=== PATIENT | male | born 1930 | race Two or more races ===

== ENCOUNTER → 2016-07-10 | Outpatient (CLI) | payer MEDICARE, OTHER ==
[2016-07-10 12:40] LABS: Basophils # (auto) 0 uL; Basophils % (auto) 0.7 % (0.0-2.0); DEFINITIVE VIEW TRANSMISSION; Eosinophils # (auto) 0.2 uL; Eosinophils % (auto) 2.3 % (0.0-7.0); Hematocrit 48.6 % (41.0-53.0); Hemoglobin 14.7 g/dL (13.5-17.5); Lymphocytes # (auto) 1.5 uL; Lymphocytes % (auto) 20.4 % (10.0-50.0); Mean Corpuscular Hemoglobin 28.7 pg (28.0-32.0); Mean Corpuscular Hgb Conc. 30.2 g/dL (32.0-36.0); Mean Corpuscular Volume 94.9 fL (80.0-100.0); Mean Platelet Volume 8.4 fL (7.4-10.4); Monocytes # (auto) 0.4 uL; Monocytes % (auto) 6.1 % (0.0-12.0); Neutrophils # (auto) 5.1 uL; Neutrophils % (auto) 70.5 % (37.0-80.0); Platelet Count (auto) 317 10^3/uL (140-450); Red Cell Distribution Width 13.7 % (11.6-16.0); White Blood Cell 7.2 10^3/uL (4.4-10.8)
[2016-07-10 13:33] LABS: Albumin 3.6 g/dL (3.4-5.0); BUN/Creatinine Ratio 19.7; Bilirubin, Total 0.6 mg/dL (0.2-1.0); Calcium 9.3 mg/dL (8.5-10.1); Total Protein 6.9 g/dL (6.4-8.2)
== END | disposition home or self-care (01) ==
LOC: LAB 09:33
PROVIDERS: ATTEND Internal Medicine Cardiovascular Disease
DX: I10 Essential (primary) hypertension (principal); D64.9 Anemia, unspecified; E78.00 Pure hypercholesterolemia, unspecified; R97.20 Elevated prostate specific antigen [PSA]; E11.9 Type 2 diabetes mellitus without complications; Z94.1 Heart transplant status
CPT/HCPCS: 36415; 80053; 80061; 80197; 83036; 84153; 84154; 85025

== ENCOUNTER → 2016-11-05 | Outpatient (CLI) | payer MEDICARE, OTHER | END | disposition home or self-care (01) | LOC: LAB 10:16 | PROVIDERS: ATTEND Internal Medicine Cardiovascular Disease | DX: Z94.1 Heart transplant status (principal); R97.20 Elevated prostate specific antigen [PSA] | CPT/HCPCS: 80197; 84153; 84154 ==

== ENCOUNTER → 2017-04-08 | Outpatient (CLI) | payer MEDICARE, OTHER ==
[2017-04-08 13:05] LABS: Basophils # (auto) 0 uL; Basophils % (auto) 0.8 % (0.0-2.0); Eosinophils # (auto) 0.1 uL; Eosinophils % (auto) 1.6 % (0.0-7.0); Hematocrit 45.7 % (41.0-53.0); Hemoglobin 15.1 g/dL (13.5-17.5); Lymphocytes % (auto) 18.5 % (10.0-50.0); Mean Corpuscular Hemoglobin 30.7 pg (28.0-32.0); Mean Corpuscular Volume 93.1 fL (80.0-100.0); Monocytes # (auto) 0.6 uL; Monocytes % (auto) 9.8 % (0.0-12.0); Neutrophils # (auto) 3.9 uL; Neutrophils % (auto) 69.3 % (37.0-80.0); Nucleated Red Blood Cells % 0.1 %; Platelet Count (auto) 228 10^3/uL (140-450); Red Cell Distribution Width 13.7 % (11.8-14.3); White Blood Cell 5.7 10^3/uL (4.4-10.8)
[2017-04-08 13:17] LABS: INR 1.01 (0.9-1.15)
[2017-04-08 13:33] LABS: BUN/Creatinine Ratio 15.8; Calcium 9.2 mg/dL (8.5-10.1); Potassium 4.3 mmol/L (3.5-5.1)
== END | disposition home or self-care (01) ==
LOC: LAB 09:23
PROVIDERS: ATTEND Internal Medicine Cardiovascular Disease
DX: Z01.812 Encounter for preprocedural laboratory examination (principal); I10 Essential (primary) hypertension; R79.1 Abnormal coagulation profile; D64.9 Anemia, unspecified
CPT/HCPCS: 36415; 80048; 85025; 85610; 85730

== ENCOUNTER 2018-05-02 17:41 | Inpatient (IN) | payer MEDICARE, OTHER ==
[~2018-05-02] VITALS: Ht 165.1 cm; Wt 46.1 kg
[~2018-05-02 17:41] MED LIST: CALC0.253 PO; ESOM40CA39 PO; NATE60TA PO; TACR1CAP19 PO
[2018-05-02 18:40] LABS: Basophils # (auto) 0 uL; Basophils % (auto) 0.3 % (0.0-2.0); Eosinophils # (auto) 0.2 uL; Eosinophils % (auto) 2.5 % (0.0-7.0); Hematocrit 33.7 % (41.0-53.0); Hemoglobin 11.1 g/dL (13.5-17.5); Lymphocytes # (auto) 2.3 uL; Lymphocytes % (auto) 29.5 % (10.0-50.0); Mean Corpuscular Hemoglobin 29.4 pg (28.0-32.0); Mean Corpuscular Hgb Conc. 32.8 g/dL (32.0-36.0); Mean Corpuscular Volume 89.6 fL (80.0-100.0); Monocytes # (auto) 0.9 uL; Monocytes % (auto) 11.5 % (0.0-12.0); Neutrophils # (auto) 4.4 uL; Neutrophils % (auto) 56.2 % (37.0-80.0); Nucleated Red Blood Cells % 0.1 %; Platelet Count (auto) 320 10^3/uL (140-450); Red Blood Cells 3.76 10^6/uL (4.5-5.90); Red Cell Distribution Width 15.6 % (11.8-14.3); White Blood Cell 7.9 10^3/uL (4.4-10.8)
[2018-05-02 18:56] LABS: Albumin 2.5 g/dL (3.4-5.0); Anion Gap 8 (5-15); Blood Urea Nitrogen 33 mg/dL (7-18); Calcium 8.6 mg/dL (8.5-10.1); Carbon Dioxide 28 mmol/L (21-32); Chloride 105 mmol/L (98-107); Glucose 100 mg/dL (74-106); Magnesium 1.9 mg/dL (1.6-2.6); Potassium 4.3 mmol/L (3.5-5.1); Sodium 141 mmol/L (136-145)
[2018-05-02 18:58] LABS: BUN/Creatinine Ratio 26.8; GFR African American 72 mL/min; GFR Non-African American 59 mL/min
[2018-05-02 19:11] LABS: Alanine Aminotransferase 13 U/L (16-61); Alkaline Phosphatase 75 U/L (45-117); Aspartate Aminotransferase 9 U/L (15-37); Bilirubin, Total 0.3 mg/dL (0.2-1.0); Total Protein 6.6 g/dL (6.4-8.2)
[2018-05-02] MEDS ORDERED: LEVOFLOXACIN 750MG 150 ML IV ONE (19:30)
[2018-05-02 21:27] LABS: Urine Amorphous Crystal FEW /hpf (None Seen); Urine Bacteria MOD /hpf (None Seen); Urine Blood TRACE /uL (Negative); Urine Mucus FEW (None Seen); Urine Specific Gravity 1.018 (1.001-1.035); Urine WBC 1027 /hpf (0 - 3); Urine WBC Clumps PRESENT /hpf (None Seen)
[2018-05-02 22:28] VITALS: BP 111/71
[2018-05-02] MEDS ORDERED: ACETAMINOPHEN 500 MG TAB PO PRN (22:30)
[2018-05-02] MEDS ORDERED: ONDANSETRON HCL 4 MG/2 ML VIAL IV PRN (22:30)
[2018-05-02] MEDS ORDERED: metroNIDAZOLE 500MG/100ML 100 ML IV SCH (23:00)
[2018-05-03] MEDS: ALBUTEROL SULF 2.5 MG/0.5ML(0.5%) NEB SOLN NEB SCH ×4 (00:15→18:55)
[2018-05-03] MEDS: IPRATROPIUM BROM 0.5 MG/2.5ML INH SOL NEB SCH ×4 (00:15→18:55)
[2018-05-03 04:06] VITALS: BP 128/63
[2018-05-03 04:50] VITALS: BP 119/78
[2018-05-03 05:35] LABS: Basophils # (auto) 0 uL; Basophils % (auto) 0.5 % (0.0-2.0); Eosinophils # (auto) 0.2 uL; Eosinophils % (auto) 3.1 % (0.0-7.0); Hematocrit 33.2 % (41.0-53.0); Hemoglobin 10.9 g/dL (13.5-17.5); Lymphocytes # (auto) 1.6 uL; Lymphocytes % (auto) 23.9 % (10.0-50.0); Mean Corpuscular Hemoglobin 29.8 pg (28.0-32.0); Mean Corpuscular Volume 90.1 fL (80.0-100.0); Monocytes # (auto) 0.7 uL; Monocytes % (auto) 11.2 % (0.0-12.0); Neutrophils # (auto) 4.1 uL; Neutrophils % (auto) 61.3 % (37.0-80.0); Platelet Count (auto) 299 10^3/uL (140-450); Red Blood Cells 3.68 10^6/uL (4.5-5.90); Red Cell Distribution Width 15.1 % (11.8-14.3); White Blood Cell 6.6 10^3/uL (4.4-10.8)
[2018-05-03 06:12] LABS: Calcium 8.6 mg/dL (8.5-10.1)
[2018-05-03 06:14] LABS: BUN/Creatinine Ratio 27.3
[2018-05-03 08:52] VITALS: BP 115/75
[2018-05-03] MEDS ORDERED: MULT-228 PO (09:21)
[2018-05-03] MEDS ORDERED: MYCO250C PO (09:21)
[2018-05-03] MEDS ORDERED: MULT-195 OR (09:21)
[2018-05-03] MEDS ORDERED: NAPR-223 PO (09:21)
[2018-05-03] MEDS ORDERED: MAGN400C2 PO (09:21)
[2018-05-03] MEDS ORDERED: SACC1CAP3 PO (09:21)
[2018-05-03] MEDS ORDERED: ENOXAPARIN SOD 30 MG/0.3 ML SYRINGE SC SCH (10:00)
[2018-05-03] MEDS: cefTRIAXone 1GM/50ML D5W 50 ML IV SCH (10:57)
[2018-05-03 14:04] VITALS: BP 96/51
[2018-05-03] MEDS ORDERED: AZITHROMYCIN 250 MG TAB PO ONE (14:45)
[2018-05-03] MEDS ORDERED: TACROLIMUS 1 MG CAP PO ONE (15:00)
[2018-05-03 17:14] VITALS: BP 112/78
[2018-05-03 21:35] VITALS: BP 120/69
[2018-05-03] MEDS: MYCOPHENOLATE 500 MG TAB PO SCH (21:37)
[2018-05-03] MEDS: TACROLIMUS 1 MG CAP PO SCH (21:37)
[2018-05-03] MEDS ORDERED: MYCOPHENOLATE 500 MG TAB PO SCH (22:00)
[2018-05-04] MEDS: IPRATROPIUM BROM 0.5 MG/2.5ML INH SOL NEB SCH ×4 (01:00→19:16)
[2018-05-04] MEDS: ALBUTEROL SULF 2.5 MG/0.5ML(0.5%) NEB SOLN NEB SCH ×4 (01:00→19:16)
[2018-05-04 04:42] VITALS: BP 102/67
[2018-05-04 09:19] VITALS: BP 111/75
[2018-05-04] MEDS: cefTRIAXone 1GM/50ML D5W 50 ML IV SCH (09:19)
[2018-05-04] MEDS: MULTIPLE VITAMINS W/ MINERALS TAB PO SCH (09:54)
[2018-05-04] MEDS: AZITHROMYCIN 250 MG TAB PO SCH (09:54)
[2018-05-04] MEDS: MYCOPHENOLATE 500 MG TAB PO SCH ×2 (09:54→22:04)
[2018-05-04] MEDS: MAGNESIUM OXIDE 400 MG TAB PO SCH (09:54)
[2018-05-04] MEDS: PANTOPRAZOLE 40 MG TAB PO SCH (09:54)
[2018-05-04] MEDS: TACROLIMUS 1 MG CAP PO SCH ×2 (10:02→22:03)
[2018-05-04 12:00] VITALS: BP 103/72
[2018-05-04 16:56] VITALS: BP 124/79
[2018-05-04 22:00] VITALS: BP_SYST 122; BP_SYST 96; BP_DIAS 49; BP_DIAS 77
[2018-05-05] VITALS (7 sets, daily range): BP systolic 100–123; BP diastolic 55–75
[2018-05-05] MEDS: IPRATROPIUM BROM 0.5 MG/2.5ML INH SOL NEB SCH ×5 (00:36→23:51)
[2018-05-05] MEDS: ALBUTEROL SULF 2.5 MG/0.5ML(0.5%) NEB SOLN NEB SCH ×5 (00:36→23:51)
[2018-05-05 07:21] LABS: BUN/Creatinine Ratio 29.2; Calcium 8.8 mg/dL (8.5-10.1); Potassium 4.1 mmol/L (3.5-5.1)
[2018-05-05] MEDS: cefTRIAXone 1GM/50ML D5W 50 ML IV SCH (09:19)
[2018-05-05] MEDS: MAGNESIUM OXIDE 400 MG TAB PO SCH (11:21)
[2018-05-05] MEDS: TACROLIMUS 1 MG CAP PO SCH ×2 (11:21→22:16)
[2018-05-05] MEDS: AZITHROMYCIN 250 MG TAB PO SCH (11:21)
[2018-05-05] MEDS: PANTOPRAZOLE 40 MG TAB PO SCH (11:21)
[2018-05-05] MEDS: MULTIPLE VITAMINS W/ MINERALS TAB PO SCH (11:21)
[2018-05-05] MEDS: MYCOPHENOLATE 500 MG TAB PO SCH ×2 (11:21→22:16)
[2018-05-06 05:00] VITALS: BP 126/86
[2018-05-06] MEDS: IPRATROPIUM BROM 0.5 MG/2.5ML INH SOL NEB SCH ×3 (06:06→19:28)
[2018-05-06] MEDS: ALBUTEROL SULF 2.5 MG/0.5ML(0.5%) NEB SOLN NEB SCH ×3 (06:06→19:29)
[2018-05-06 08:00] VITALS: BP 120/77
[2018-05-06 09:00] VITALS: BP 120/77
[2018-05-06] MEDS: PANTOPRAZOLE 40 MG TAB PO SCH (09:45)
[2018-05-06] MEDS: MAGNESIUM OXIDE 400 MG TAB PO SCH (09:45)
[2018-05-06] MEDS: cefTRIAXone 1GM/50ML D5W 50 ML IV SCH (09:45)
[2018-05-06] MEDS: MULTIPLE VITAMINS W/ MINERALS TAB PO SCH (09:45)
[2018-05-06] MEDS: AZITHROMYCIN 250 MG TAB PO SCH (09:45)
[2018-05-06] MEDS: TACROLIMUS 1 MG CAP PO SCH ×2 (09:46→21:27)
[2018-05-06] MEDS: MYCOPHENOLATE 500 MG TAB PO SCH ×2 (09:46→21:26)
[2018-05-06 13:00] VITALS: BP 111/77
[2018-05-06 17:04] VITALS: BP 114/78
[2018-05-06] MEDS ORDERED: HYDROcodone-ACET 5/325MG TAB PO PRN (19:00)
[2018-05-06] MEDS ORDERED: VANCOMYCIN PER PHARMACY 0 MG IV SCH (19:00)
[2018-05-06] MEDS ORDERED: ACETAMINOPHEN 500 MG TAB PO PRN (19:00)
[2018-05-06] MEDS ORDERED: BISACODYL 10 MG RECT SUPP PR PRN (19:15)
[2018-05-06] MEDS ORDERED: LORazepam 0.5 MG TAB PO PRN (19:15)
[2018-05-06] MEDS ORDERED: hydrALAZINE HCL 10 MG TAB PO PRN (19:15)
[2018-05-06] MEDS ORDERED: oxyCODONE ER 10 MG TAB PO PRN (19:15)
[2018-05-06] MEDS ORDERED: ONDANSETRON HCL 4 MG/2 ML VIAL IV PRN (19:30)
[2018-05-06] MEDS: Ensure Enlive Chocolate 8oz Bottle PO SCH (20:46)
[2018-05-06] MEDS ORDERED: VANCOMYCIN 500 MG in D5W 5% 100 ML IV ONE (21:00)
[2018-05-06 22:00] VITALS: BP 109/71
[2018-05-06] MEDS ORDERED: METHOCARBAMOL 500 MG TAB PO SCH (22:00)
[2018-05-06] MEDS ORDERED: TAMSULOSIN HYDROCHLORIDE 0.4 MG CAP PO SCH (22:00)
[2018-05-06] MEDS ORDERED: GABAPENTIN 400 MG CAP PO SCH (22:00)
[2018-05-06] MEDS ORDERED: QUEtiapine FUMARATE 100 MG TAB PO SCH (22:00)
[2018-05-06] MEDS ORDERED: TOLTERODINE TARTRATE 1 MG TAB PO SCH (22:00)
[2018-05-06] MEDS ORDERED: HEPARIN SODIUM (PORCINE) 5000 UNITS/ML 1ML VIAL SC SCH (22:00)
[2018-05-06] MEDS ORDERED: CARBIDOPA W LEVODOPA 10/100mg TABLET PO SCH (22:00)
[2018-05-07] MEDS ORDERED: PIPERACILLIN-TAZOB 3.375GM 100 ML IV SCH
[2018-05-07 05:00] VITALS: BP 103/66
[2018-05-07] MEDS: ALBUTEROL SULF 2.5 MG/0.5ML(0.5%) NEB SOLN NEB SCH ×4 (06:01→19:00)
[2018-05-07] MEDS: IPRATROPIUM BROM 0.5 MG/2.5ML INH SOL NEB SCH ×4 (06:01→19:00)
[2018-05-07] MEDS ORDERED: PANTOPRAZOLE 40 MG/10 ML VIAL IV SCH (07:00)
[2018-05-07 09:00] VITALS: BP 97/66
[2018-05-07] MEDS: Ensure Enlive Chocolate 8oz Bottle PO SCH ×3 (09:21→17:56)
[2018-05-07] MEDS ORDERED: DULoxetine HCL 30 MG CAP PO SCH (10:00)
[2018-05-07] MEDS ORDERED: MULTIPLE VITAMIN TAB PO SCH (10:00)
[2018-05-07] MEDS ORDERED: AMIODARONE HCL 200 MG TAB PO SCH (10:00)
[2018-05-07] MEDS ORDERED: FINASTERIDE 5 MG TAB PO SCH (10:00)
[2018-05-07] MEDS ORDERED: CHOLECALCIFEROL (VITD3) 1,000 UNIT TAB PO SCH (10:00)
[2018-05-07] MEDS ORDERED: METOPROLOL SUCCINATE XL 50 MG TAB PO SCH (10:00)
[2018-05-07] MEDS ORDERED: MEMANTINE HCL 5 MG TAB PO SCH (10:00)
[2018-05-07] MEDS ORDERED: ASPirin 81 mg TAB PO SCH (10:00)
[2018-05-07] MEDS: MULTIPLE VITAMINS W/ MINERALS TAB PO SCH (10:43)
[2018-05-07] MEDS: MAGNESIUM OXIDE 400 MG TAB PO SCH (10:43)
[2018-05-07] MEDS: AZITHROMYCIN 250 MG TAB PO SCH (10:43)
[2018-05-07] MEDS: PANTOPRAZOLE 40 MG TAB PO SCH (10:43)
[2018-05-07] MEDS: TACROLIMUS 1 MG CAP PO SCH ×2 (10:44→22:00)
[2018-05-07] MEDS: MYCOPHENOLATE 500 MG TAB PO SCH ×2 (10:44→22:00)
[2018-05-07] MEDS ORDERED: cefTRIAXone 1GM/50ML D5W 50 ML IV SCH (11:15)
[2018-05-07] MEDS ORDERED: VANCOMYCIN PER PHARMACY 0 MG IV SCH (12:45)
[2018-05-07 13:00] VITALS: BP 108/78
[2018-05-07] MEDS ORDERED: VANCOMYCIN 500 MG in D5W 5% 100 ML IV ONE (13:30)
[2018-05-07 18:07] VITALS: BP 97/66
[2018-05-07 22:00] VITALS: BP 109/67
[2018-05-08] MEDS: ALBUTEROL SULF 2.5 MG/0.5ML(0.5%) NEB SOLN NEB SCH ×4 (00:38→18:52)
[2018-05-08] MEDS: IPRATROPIUM BROM 0.5 MG/2.5ML INH SOL NEB SCH ×4 (00:38→18:52)
[2018-05-08 05:00] VITALS: BP 100/68
[2018-05-08 07:30] LABS: Basophils # (auto) 0 uL; Basophils % (auto) 0.5 % (0.0-2.0); Eosinophils # (auto) 0.2 uL; Eosinophils % (auto) 2.5 % (0.0-7.0); Hematocrit 34.1 % (41.0-53.0); Hemoglobin 11.2 g/dL (13.5-17.5); Lymphocytes # (auto) 2.2 uL; Lymphocytes % (auto) 25.7 % (10.0-50.0); Mean Corpuscular Hemoglobin 29.3 pg (28.0-32.0); Mean Corpuscular Hgb Conc. 32.9 g/dL (32.0-36.0); Mean Corpuscular Volume 89.1 fL (80.0-100.0); Monocytes # (auto) 0.7 uL; Monocytes % (auto) 8.2 % (0.0-12.0); Neutrophils # (auto) 5.4 uL; Neutrophils % (auto) 63.1 % (37.0-80.0); Platelet Count (auto) 297 10^3/uL (140-450); Red Blood Cells 3.82 10^6/uL (4.5-5.90); Red Cell Distribution Width 15.4 % (11.8-14.3); White Blood Cell 8.6 10^3/uL (4.4-10.8)
[2018-05-08 07:42] LABS: Albumin 2.5 g/dL (3.4-5.0); Calcium 8.9 mg/dL (8.5-10.1); Potassium 4.6 mmol/L (3.5-5.1)
[2018-05-08 07:47] LABS: BUN/Creatinine Ratio 46.4; Bilirubin, Total 0.2 mg/dL (0.2-1.0)
[2018-05-08 08:45] VITALS: BP 101/70
[2018-05-08] MEDS: Ensure Enlive Chocolate 8oz Bottle PO SCH ×3 (08:47→18:18)
[2018-05-08] MEDS: cefTRIAXone 1GM/50ML D5W 50 ML IV SCH (10:18)
[2018-05-08] MEDS: PANTOPRAZOLE 40 MG TAB PO SCH (10:19)
[2018-05-08] MEDS: MULTIPLE VITAMINS W/ MINERALS TAB PO SCH (10:19)
[2018-05-08] MEDS: MAGNESIUM OXIDE 400 MG TAB PO SCH (10:19)
[2018-05-08] MEDS: MYCOPHENOLATE 500 MG TAB PO SCH ×2 (10:19→21:41)
[2018-05-08] MEDS: TACROLIMUS 1 MG CAP PO SCH ×2 (10:19→21:41)
[2018-05-08] MEDS: FLUCONAZOLE 100 MG TAB PO SCH (10:32)
[2018-05-08 12:30] VITALS: BP 109/67
[2018-05-08] MEDS: VANCOMYCIN 500 MG in D5W 5% 100 ML IV SCH (16:17)
[2018-05-08 16:25] VITALS: BP 101/62
[2018-05-08 19:54] VITALS: BP 101/62
[2018-05-08 21:59] VITALS: BP 114/69
[2018-05-09] MEDS: ALBUTEROL SULF 2.5 MG/0.5ML(0.5%) NEB SOLN NEB SCH ×3 (00:43→11:51)
[2018-05-09] MEDS: IPRATROPIUM BROM 0.5 MG/2.5ML INH SOL NEB SCH ×3 (00:43→11:51)
[2018-05-09 05:00] VITALS: BP 94/41
[2018-05-09] MEDS: Ensure Enlive Chocolate 8oz Bottle PO SCH ×2 (08:00→12:00)
[2018-05-09 09:00] VITALS: BP 119/49
[2018-05-09] MEDS: cefTRIAXone 1GM/50ML D5W 50 ML IV SCH (09:04)
[2018-05-09] MEDS: MULTIPLE VITAMINS W/ MINERALS TAB PO SCH (10:35)
[2018-05-09] MEDS: PANTOPRAZOLE 40 MG TAB PO SCH (10:35)
[2018-05-09] MEDS: MYCOPHENOLATE 500 MG TAB PO SCH (10:36)
[2018-05-09] MEDS: MAGNESIUM OXIDE 400 MG TAB PO SCH (10:36)
[2018-05-09] MEDS: FLUCONAZOLE 100 MG TAB PO SCH (10:36)
[2018-05-09] MEDS: TACROLIMUS 1 MG CAP PO SCH (10:37)
[2018-05-09 13:26] VITALS: BP 127/58
[2018-05-09] MEDS: VANCOMYCIN 500 MG in D5W 5% 100 ML IV SCH (13:39)
[2018-05-09 15:07] VITALS: BP 127/58
[2018-05-09 16:44] VITALS: BP 120/55
== END 2018-05-09 16:45 | disposition home health service (06) | DRG 190 ==
LOC: EDBD 17:41 → ER 17:45 → TELE-WESTW 22:34
PROVIDERS: ADMIT Nurse Practitioner Family; ATTEND Internal Medicine Cardiovascular Disease
DX: J44.0 Chronic obstructive pulmonary disease with (acute) lower respiratory infection (principal); J18.9 Pneumonia, unspecified organism; N30.00 Acute cystitis without hematuria; J96.10 Chronic respiratory failure, unspecified whether with hypoxia or hypercapnia; E44.0 Moderate protein-calorie malnutrition; Z94.1 Heart transplant status; Z68.1 Body mass index [BMI] 19.9 or less, adult; J44.1 Chronic obstructive pulmonary disease with (acute) exacerbation; I50.9 Heart failure, unspecified; D64.9 Anemia, unspecified; E11.9 Type 2 diabetes mellitus without complications; F17.210 Nicotine dependence, cigarettes, uncomplicated; Z85.828 Personal history of other malignant neoplasm of skin; Z87.01 Personal history of pneumonia (recurrent); Z99.81 Dependence on supplemental oxygen; A49.02 Methicillin resistant Staphylococcus aureus infection, unspecified site
CPT/HCPCS: 36415; 36600; 71045; 80048; 80053; 81001; 82805; 83735; 83880; 84484; 85025; 87070; 87077; 87081; 87086; 87186; 87205; 93005; 94640; 96365; 96367; 97116; 97530; G0378; J0696; J1956; J3490; J7060; J7507; J7517

== ENCOUNTER → 2018-05-18 | Outpatient (CLI) | payer MEDICARE, OTHER ==
[~2018-05-18] MED LIST changes: +MAGN400C2 PO; +MULT-195 OR; +MULT-228 PO; +MYCO250C PO; +NAPR-223 PO; +SACC1CAP3 PO
== END | disposition home or self-care (01) ==
LOC: Rad HDHVI 12:23
PROVIDERS: ATTEND Internal Medicine Cardiovascular Disease
DX: J18.9 Pneumonia, unspecified organism (principal)
CPT/HCPCS: 71046

== ENCOUNTER → 2018-05-26 | Outpatient (CLI) | payer MEDICARE, OTHER | END | disposition home or self-care (01) | LOC: Rad HDHVI 13:01 | PROVIDERS: ATTEND Internal Medicine Cardiovascular Disease | DX: E78.00 Pure hypercholesterolemia, unspecified (principal); R06.02 Shortness of breath; Z94.1 Heart transplant status | CPT/HCPCS: 93306 ==